=== PATIENT | female | born 1935 | race Caucasian/White ===

== ENCOUNTER → 2016-10-21 | Outpatient (CLI) | payer MEDICARE, OTHER ==
[~2016-10-21] MED LIST: ALPR0.5T PO; AMLO10TA2 PO; IOHEXOL 180 MG/ML 10 ML VIAL. ONE; LISI10TA2 PO; METO100T11 PO; SIMV10TA3 PO; [UNRECOGNIZED DRUG - OTHER]; methylPREDNISolone ACETATE 40 MG/ML VIAL. ONE; methylPREDNISolone ACETATE 80 MG/ML VIAL. ONE
--- NOTE | 2016-10-22 03:41 | PAIN ---
DATE OF SERVICE: 10/21/2016 INITIAL CONSULTATION CHIEF COMPLAINT: Bilateral hand and foot pain. SECONDARY COMPLAINT: Low back pain. HISTORY OF PRESENT ILLNESS: The patient is a 81-year-old female who presents with history of pain, increasing about a year ago, gradually increasing, not as a result of any specific injury or action that she is aware of in the bilateral hands and feet with a burning, hot, stinging sensation. The patient has had this for about a year now. She reports she has tried some [id number]-[id number] Tylenol and ibuprofen, also taking Xanax which helps temporarily with the pain, but works better on her low back pain. The patient reports she does have some low back pain, but it "gives out" about once a year and she is feeling as though it is getting close to that once again. She is having some increased twinges of pain when she is doing some activity, standing, walking, bending or stooping for more than about 15-20 minutes. The patient reports her chief complaint, however, is her hands and her foot pain that she has had significantly increasing. The patient reports she has seen her primary physician about this and has tried some samples of Lyrica, which were not significantly helpful, but she only tried these for about a week at a time. She still continues to do some exercise and she is trying to keep her back limber, but nothing has really helped the pain in the hands and the feet except for a compounded cream that her has, that she has been using of his, which has capsaicin, gabapentin and lidocaine in it; it helps to decrease the pain to a fair extent when he uses it for his peripheral neuropathic pain, but she is trying not to use it as much because it is not her prescription. The patient reports otherwise constant, throbbing, intermittent pain in the low back as well. She reports it does not awaken her from sleep at night, except very, very rarely. It does not affect her bowel or bladder control or ability to walk to a significant extent, but she feels that her feet and hands are like walking on a hot beach in the hot sand, only it is all the time on the hands and the feet. The patient did have an MRI scan of the lumbar spine, showing mild spinal canal stenosis at L3-L4 with moderate diffuse disk bulge, superimposed right paracentral and right subarticular zone disk herniation with some diffuse disk bulge at L4-L5 and L2-L3 without significant disk bulge. L5-S1 shows mild diffuse disk bulge as well. PAST MEDICAL HISTORY: Significant for hypertension, gastroesophageal reflux, arthritis, peripheral neuropathy, sinus congestion, anemia. PAST SURGICAL HISTORY: Previous surgeries include x 4. CURRENT MEDICATIONS: Include Xanax, simvastatin, lisinopril, metoprolol, and amlodipine. ALLERGIES: THE PATIENT IS ALLERGIC TO SULFA. FAMILY HISTORY: Significant for high blood pressure. SOCIAL HISTORY: The patient does not smoke. Drinks wine or whisky once or twice a month at the most. The patient is , lives with her spouse and lives in [place], [place]. REVIEW OF SYSTEMS: The patient's review of systems is positive for those items mentioned in the history of present illness. All systems reviewed and otherwise negative. It is complete, full and well documented on the patient's chart. PHYSICAL EXAMINATION: VITAL SIGNS: Today, the patient's blood pressure 148/86, pulse 80, respirations 18, temperature 97.4 degrees Fahrenheit, height is 5 feet, weight is 152 pounds. GENERAL: The patient is awake, alert, oriented, appropriate, very pleasant demeanor. HEENT: Shows normocephalic and atraumatic. Extraocular movements are intact and symmetrical. Oral cavity shows mucous membranes moist and pink. Dentition is intact. NECK: Shows anterior throat supple without palpable lymphadenopathy noted. Swallow reflex is symmetrical. CHEST: Shows normal on inspection. Breath sounds are clear to auscultation bilaterally. HEART: Shows S1 and S2 clear. ABDOMEN: Soft, obese, nontender, nondistended. No palpable organomegaly. No new rebound or guarding demonstrated. BACK: Shows spine grossly in the midline. Slight exaggeration of thoracic kyphosis and mild flattening of the lumbar lordotic curvature. No previous bruises, lesions, rashes or scars are noted. The patient shows some moderate tenderness with palpation in the middle and lower lumbar distribution of the paraspinous muscles, but only very diffusely and only very mildly with palpation. Good rotational motion both laterally as well as extension and flexion without significant exacerbation of the pain. EXTREMITIES: The patient's extremities show lower extremity deep tendon reflexes at 2+ in the patellar and 1+ tendo calcaneus tendons. Motor exam is strong with 5/5 dorsiflexion, extension, quadriceps and hamstring flexion and equal and symmetrical. Peripheral pulses are 1+ posterior tibial and dorsalis pedis pulses. No peripheral edema is noted bilaterally. The patient does have a significant erythematous discoloration on the toes as well as the entire dorsum of the foot and reports significant tenderness with some mild hyperesthesia as her foot is already painful, but with even light touch exacerbates the pain significantly over the dorsum of the foot and the top of the toes. Examination of upper extremities shows deep tendon reflexes 2+ in the biceps and triceps tendons. Motor exam is strong with presentation manager strength rated at 5/5 as is bicep and tricep flexion and equal. Peripheral pulses are 2+ in the radial distribution. No peripheral edema is noted. No clubbing or edema. The patient has significant erythematous appearance of both the palmar and the dorsum of the hand, very red, very erythematous. Again, no swelling and with full range of motion of all the joints without significant tenderness, but with significant pain with increased touch and pressure on the hands themselves. Again, significant erythema, but not warm to the touch, actually slightly cool to touch on both of the hands in the upper extremities. IMPRESSION: 1. This is a 81-year-old female with about a year history of increasing pain, bilateral hands and feet consistent with a peripheral neuropathy, unspecified or idiopathic in nature, as the patient is not diabetic and is not alcoholic. 2. Low back pain with MRI scan of the lumbar spine as noted. 3. History of arthritis. 4. Hypertension. PLAN: Options were discussed with the patient including conservative medical management, physical therapy, interventional techniques. With regard to her back pain, we will proceed with a lumbar epidural steroid injection today. She would like to proceed with this, as she has had help with these in the past by her report and is feeling that the pain is becoming worse in the low back over the past few months. Risks were discussed including but not limited to bleeding, infection, possibility of epidural hematoma, subsequent neurologic compromise, dural puncture, headaches, spinal cord and/or nerve damage, side effects of steroid medication and poor results regarding pain control. The patient understands and wishes to proceed. With regard to her neuropathy, we will start the patient on gabapentin at 100 mg 3 times daily. The patient was cautioned of the side effects with the medications, especially somnolence, stomach upset and peripheral edema. If she finds too much somnolence, we will decrease it to twice a day with plan of increasing this in several weeks to 200 mg as tolerated 2-3 times a day. I explained this will be able to slow process, but may help the peripheral neuropathic pain in her hands and feet potentially very significantly. The patient is willing to try this and will follow up in approximately 2 weeks as scheduled. DIAGNOSIS: Low back pain with lumbar degenerative disk disease. PROCEDURES: Lumbar epidural steroid injection in translaminar approach at the L3-L4 level using C-arm fluoroscopic guidance under sterile prep and drape using local anesthetic. MEDICATION INJECTED: Depo-Medrol 120 mg plus 10 mL of preservative-free normal saline and 2 mL of Isovue for contrast. CONDITION AT DISCHARGE: Stable. The patient tolerated the procedure well, had no complications. BRITTNEY LAU MD DR: ROSEMARIE/nora JOB#: [id number] / [id number]
== END | disposition home or self-care (01) ==
LOC: PNCL 09:21
PROVIDERS: ATTEND Anesthesiology
DX: M51.36 Other intervertebral disc degeneration, lumbar region (principal); I10 Essential (primary) hypertension; K21.9 Gastro-esophageal reflux disease without esophagitis; D64.9 Anemia, unspecified; M19.90 Unspecified osteoarthritis, unspecified site; G62.9 Polyneuropathy, unspecified
CPT/HCPCS: 62323; J1030; J1040

== ENCOUNTER → 2016-11-09 | Outpatient (CLI) | payer MEDICARE, OTHER ==
[~2016-11-09] MED LIST changes: -IOHEXOL 180 MG/ML 10 ML VIAL. ONE; -methylPREDNISolone ACETATE 40 MG/ML VIAL. ONE; -methylPREDNISolone ACETATE 80 MG/ML VIAL. ONE
--- NOTE | 2016-11-09 12:18 | PAIN ---
DATE OF SERVICE: 11/09/2016 PROGRESS NOTE FOR PAIN CLINIC DIAGNOSES: 1. Low back pain with lumbar degenerative disk disease. 2. Peripheral neuropathy. HISTORY OF PRESENT ILLNESS: This is a 81-year-old female, who returns for followup status post previous lumbar epidural steroid injection about 90% improvement in the back and right leg. The patient reports she is doing much better, very pleased with that, but her main complaint is still some neuropathic pain in her hands and feet bilaterally. The patient relates a story that she had a pedicure and a manicure about 2 weeks ago and had some massage done with her hands and feet while she was there and the pain was gone for about half a day after the massage treatment. The patient reports that it came back as still burning, aching pain is radiating to severe in both feet, both the hands, but somewhat better than it was after the massages that she had with her ____. The patient reports it is 7 on a scale of 10 is its worst, is a 1 on a scale of 10 at least and 1 on a scale of 10 today. The patient reports no new motor or sensory deficits, again in her back is doing much better about 90%. She is quite pleased with no recurrence at this time. PHYSICAL EXAMINATION: VITAL SIGNS: The patient's blood pressure is 141/78, pulse 90, respirations are 18, temperature 97.7 degrees Fahrenheit, weight is 150 pounds. GENERAL: The patient is awake, alert, oriented, appropriate, very pleasant demeanor. HEENT: Head shows normocephalic, atraumatic. Extraocular movements are intact and symmetrical. Oral cavity shows mucous membranes moist and pink. Dentition is intact. NECK: Shows anterior throat supple without palpable lymphadenopathy noted. Swallow reflex is symmetrical. CHEST: Shows normal on inspection. Breath sounds are clear to auscultation bilaterally. HEART: Shows S1 and S2 clear. ABDOMEN: Soft, nontender, nondistended. No palpable organomegaly. No rebound or guarding demonstrated. BACK: The patient's back shows a slight exaggeration of thoracic kyphosis and mild flattening of lumbar lordotic curvature. No previous bruises, lesions, rashes or scars are noted. The patient's extremities shows some mild erythematous discoloration on the palms of the hands, but less erythematous than on previous exam shows good patternmaker sample strength rated at 5/5 and equal. EXTREMITIES: Lower extremities show no specific discoloration or symmetrical and equal in color and appearance with good dorsiflexion, extension bilaterally with 5/5 strength in all extremities. Options were discussed with the patient. The patient's old chart was reviewed as her current medication regimen updated. Current review of systems updated today as well. We will send patient for occupational therapy for massage techniques and mobility of the hands and feet. Also, we will change gabapentin to 1 tablet in the morning, 1 in the afternoon and 2 tablets at night and will slowly increase her on this scheduled and she tolerates it, she is currently some minor sedation with the medication, but reports it is not where she is ____ and dysfunctional and we will increase the dose at night. The patient given instruction as well as side effects to be aware with medication and will follow up in approximately 4 weeks or as needed. BRITTNEY LAU MD DR: ROSEMARIE/nora JOB#: [id number] / [id number]
== END | disposition home or self-care (01) ==
LOC: PNCL 09:19
PROVIDERS: ATTEND Anesthesiology
DX: M51.36 Other intervertebral disc degeneration, lumbar region (principal); G62.9 Polyneuropathy, unspecified
CPT/HCPCS: G0463

== ENCOUNTER → 2017-07-28 | Outpatient (CLI) | payer MEDICARE, OTHER ==
[~2017-07-28] MED LIST changes: -ALPR0.5T PO; -AMLO10TA2 PO; +IOHEXOL 180 MG/ML 10 ML VIAL.; -LISI10TA2 PO; -METO100T11 PO; -SIMV10TA3 PO; -[UNRECOGNIZED DRUG - OTHER]; +methylPREDNISolone ACETATE 40 MG/ML VIAL.; +methylPREDNISolone ACETATE 80 MG/ML VIAL.
== END | disposition home or self-care (01) ==
LOC: PNCL 13:05
DX: M51.16 Intervertebral disc disorders with radiculopathy, lumbar region (principal); G62.9 Polyneuropathy, unspecified
CPT/HCPCS: 62323; J1030; J1040; Q9965